=== PATIENT | male | born 1980 | race Caucasian/White ===

== ENCOUNTER 2020-12-20 17:41 | Emergency (ER) | payer OTHER ==
[~2020-12-20] VITALS: Ht 180.3 cm; Wt 215.0 kg
[~2020-12-20 17:41] MED LIST: CELEXA 20 MG TA20 MG PO; KLONIPIN PO
[2020-12-20] MEDS ORDERED: ZOLOFT50 M1 PO (17:52)
[2020-12-20] MEDS ORDERED: ABILIFY10 MG PO (17:52)
[2020-12-20] MEDS ORDERED: LIPITOR20 MG PO (17:52)
[2020-12-20] MEDS ORDERED: LISINOPRIL5 MG PO (17:52)
[2020-12-20] MEDS ORDERED: ASA81BEC PO (17:52)
[2020-12-20] MEDS ORDERED: NEXIUM10 MG PO (17:53)
[2020-12-20 19:01] LABS: ABSOLUTE BASOPHILS 0.1 thou/uL (0.0-0.2); ABSOLUTE LYMPHOCYTES 1.1 thou/uL (0.8-5.3); ABSOLUTE NEUTROPHILS 8.8 thou/uL (1.6-8.1); BASOPHILS 0.6 %; EOSINOPHILS 0.3 %; HEMATOCRIT 36.6 % (42.0-52.0); HEMOGLOBIN 12.6 gm/dL (14.0-18.0); LYMPHOCYTES 9.9 %; MCH 29.7 pg (26.0-34.0); MCHC 34.6 g/dL (28.0-37.0); MONOCYTES 8.8 %; MPV 7.6 fl. (7.2-11.1); NUCLEATED RBCS 0 /100WBC; PLATELET COUNT* 234 thou/uL (150-400); POLYS 80.4 %; RBC 4.25 mil/uL (4.50-6.00)
[2020-12-20 19:05] LABS: CALCIUM 8.9 mg/dL (8.5-10.1); POTASSIUM 3.5 mmol/L (3.5-5.1)
[2020-12-20 19:09] LABS: ALBUMIN 3.3 g/dL (3.4-5.0); TOTAL BILIRUBIN 0.6 mg/dL (<0.1-1.0); TOTAL PROTEIN 7.9 g/dL (6.4-8.2)
[2020-12-20] MEDS ORDERED: CEPHALEXIN500 MG PO (19:38)
[2020-12-20] MEDS ORDERED: BACTRIM DS TAB1 EAC1 PO (19:38)
[2020-12-20 19:47] VITALS: BP 141/70
== END 2020-12-20 19:48 | disposition home or self-care (01) ==
LOC: M.ERS 17:41
PROVIDERS: Nurse Practitioner Family
DX: L03.116 Cellulitis of left lower limb (principal); I10 Essential (primary) hypertension; E78.5 Hyperlipidemia, unspecified